=== PATIENT | female | born 1965 | race Caucasian/White ===

== ENCOUNTER 2019-11-30 18:45 | Inpatient (IN) ==
[2019-11-30 19:46] LABS: Basophils % 0.5 %; Eosinophils # 0.1 K/mcL (0.0-0.6); Hematocrit 41.1 % (35.3-44.9); Hemoglobin 13.9 g/dL (11.5-15.4); Immature Granulocytes % 0.3 % (0-4); Lymphocytes # 1.6 K/mcL (0.6-4.6); Mean Corpuscular HGB Conc 33.8 g/dL (31.6-35.5); Mean Corpuscular Volume 94.7 fL (83.0-100.0); Mean Platelet Volume 10.7 fL (9.4-12.4); Monocytes # 0.8 K/mcL (0.0-1.3); Monocytes % 11.6 %; Neutrophils # 3.9 K/mcL (1.6-8.9); Platelet Count 148 K/mcL (140-400); Red Blood Count 4.34 M/mcL (3.82-4.97); Red Cell Distribution Width 14.3 % (11.5-14.5); Segmented Neutrophils % 60.6 %; White Blood Count 6.5 K/mcL (4.3-11.1)
[2019-11-30 19:49] LABS: INR 1.1; Prothrombin Time 12.5 Seconds (9.4-12.1)
[2019-11-30 19:52] LABS: Activated Partial Thrombo Time 31.1 Seconds (26.0-36.0)
[2019-11-30 20:18] LABS: BUN/Creatinine Ratio 18 (6-26); Blood Urea Nitrogen 11 mg/dL (6-20); Calcium 9.6 mg/dL (8.6-10.3); Carbon Dioxide 28 mEq/L (23-29); Chloride 100 mEq/L (98-107); Creatine Kinase 142 Units/L (30-223); Glucose 104 mg/dL (70-105); Osmolality,Calculated 286 (280-300); Potassium 3.5 mEq/L (3.5-5.1); Sodium 138 mEq/L (136-145); Troponin I < 0.03 ng/mL (< 0.04); eGFR For African Americans > 60 (> 60); eGFR For Non-African Americans > 60 (> 60)
[2019-11-30] MEDS ORDERED: Morphine Sulfate 2 MG/ML SYRINGE IVP ONE (20:33)
[2019-11-30] MEDS ORDERED: Naloxone 0.4 MG/ML INJ IVP PRN (22:06)
[2019-11-30] MEDS ORDERED: Ondansetron 4 MG/2 ML VIAL IVP PRN (22:06)
[2019-11-30] MEDS ORDERED: 0.9 % Sodium Chloride 1,000 ML IVC SCH (22:15)
[2019-12-01] MEDS: *HR* Heparin 5,000 UNIT/ML VIAL SQ SCH ×2 (02:43→12:53)
[2019-12-01] MEDS ORDERED: *HR* Buprenorphine HCl 8 MG TAB.SUBL SL SCH (03:15)
[2019-12-01 05:36] LABS: Basophils % 0.5 %; Eosinophils # 0.3 K/mcL (0.0-0.6); Eosinophils % 4.6 %; Hematocrit 37.9 % (35.3-44.9); Hemoglobin 12.3 g/dL (11.5-15.4); Immature Granulocytes % 0.4 % (0-4); Immature Platelets 4.3 % (1.1-6.1); Lymphocytes # 1.6 K/mcL (0.6-4.6); Lymphocytes % 29.6 %; Mean Corpuscular HGB Conc 32.5 g/dL (31.6-35.5); Mean Corpuscular Hemoglobin 31.2 pg (28.0-33.3); Mean Corpuscular Volume 96.2 fL (83.0-100.0); Mean Platelet Volume 10.3 fL (9.4-12.4); Monocytes # 0.7 K/mcL (0.0-1.3); Monocytes % 12.6 %; Neutrophils # 2.9 K/mcL (1.6-8.9); Platelet Count 132 K/mcL (140-400); Red Blood Count 3.94 M/mcL (3.82-4.97); Red Cell Distribution Width 14.4 % (11.5-14.5); Segmented Neutrophils % 52.3 %; White Blood Count 5.5 K/mcL (4.3-11.1)
[2019-12-01 05:50] LABS: Alanine Aminotransferase 4 Units/L (7-52); Albumin 3.6 g/dL (3.5-5.7); Albumin/Globulin Ratio 1.2 (1.1-2.2); Alkaline Phosphatase 50 Units/L (34-104); Aspartate Amino Transferase 11 Units/L (13-39); BUN/Creatinine Ratio 25 (6-26); Bilirubin,Total 0.5 mg/dL (0.3-1.0); Blood Urea Nitrogen 13 mg/dL (6-20); Calcium 8.9 mg/dL (8.6-10.3); Carbon Dioxide 27 mEq/L (23-29); Chloride 106 mEq/L (98-107); Glucose 106 mg/dL (70-105); Osmolality,Calculated 287 (280-300); Potassium 3.8 mEq/L (3.5-5.1); Sodium 138 mEq/L (136-145); Total Protein 6.6 g/dL (6.4-8.9); eGFR For African Americans > 60 (> 60); eGFR For Non-African Americans > 60 (> 60)
[2019-12-01 08:08] LABS: Adenovirus Not Detected (Not Detect); Bordetella Pertussis Not Detected (Not Detect); Chlamydophila pneumoniae Not Detected (Not Detect); Coronavirus 229E Not Detected (Not Detect); Coronavirus HKU1 Not Detected (Not Detect); Coronavirus NL63 Not Detected (Not Detect); Coronavirus OC43 Not Detected (Not Detect); Human Metapneumovirus Not Detected (Not Detect); Human Rhinovirus/Enterovirus Not Detected (Not Detect); Influenza A Subtype 2009 H1 Not Detected (Not Detect); Influenza B Not Detected (Not Detect); Mycoplasma pneumoniae Not Detected (Not Detect); Parainfluenza Virus 1 Not Detected (Not Detect); Parainfluenza Virus 2 Not Detected (Not Detect); Parainfluenza Virus 3 Not Detected (Not Detect); Parainfluenza Virus 4 Not Detected (Not Detect); Respiratory Syncytial Virus Not Detected (Not Detect); SARS-CoV-2 Not Detected (Not Detect)
[2019-12-01] MEDS ORDERED: Ketorolac 15 MG/ML VIAL IVP PRN (08:35)
[2019-12-01] MEDS ORDERED: HYDROcodone BIT/Homatropine 5 MG TABLET PO PRN ×2 (08:36→12:56)
[2019-12-01] MEDS ORDERED: *HR* Propofol 200 MG/20 ML VIAL IVP ONE (09:08)
[2019-12-01] MEDS ORDERED: Ondansetron 4 MG/2 ML VIAL ONE (09:08)
[2019-12-01] MEDS ORDERED: Dexamethasone 4 MG/ML VIAL ONE (09:08)
[2019-12-01] MEDS ORDERED: Lidocaine -MPF 2% 2 ML VIAL ONE (09:08)
[2019-12-01] MEDS ORDERED: *HR* FentaNYL (PF) 100 MCG/2 ML VIAL ONE ×3 (09:08→10:30)
[2019-12-01] MEDS ORDERED: *HR* Midazolam HCl 2 MG/2 ML VIAL ONE ×2 (09:15→10:18)
[2019-12-01] MEDS ORDERED: Vancomycin 1,000 MG VIAL ONE (09:22)
[2019-12-01] MEDS ORDERED: Nicotine 21 MG PATCH.TD24 TD SCH (09:30)
[2019-12-01] MEDS ORDERED: Acetaminophen IV 1,000 MG/100 ML INFUS..BTL ONE (09:56)
[2019-12-01] MEDS ORDERED: Ketorolac 30 MG/ML VIAL ONE (10:39)
[2019-12-01] MEDS ORDERED: CeFAZolin Syr 2,000MG/20 ML 2,000 MG/20 ML SYRINGE IVPB ONE (10:41)
[2019-12-01] MEDS ORDERED: Famotidine 20 MG/2 ML VIAL IVP ONE (11:16)
[2019-12-01] MEDS ORDERED: Pregabalin 75 MG CAPSULE PO ONE (11:16)
[2019-12-01] MEDS ORDERED: *HR* Labetalol 20 MG/4 ML SYRINGE IVP PRN (11:16)
[2019-12-01] MEDS ORDERED: *HR* OxyCODONE Immed Rel 5 MG TABLET PO PRN ×2 (11:16→16:46)
[2019-12-01] MEDS ORDERED: *HR* Promethazine 25 MG/ML VIAL IVP PRN (11:16)
[2019-12-01] MEDS ORDERED: *HR* HYDROmorphone 2 MG TABLET PO PRN (11:16)
[2019-12-01] MEDS: *HR* HYDROmorphone (PF) 1 MG/ML SYRINGE IVP PRN ×3 (11:25→11:56)
[2019-12-01 11:49] LABS: Hematocrit 41.3 % (35.3-44.9); Hemoglobin 13.1 g/dL (11.5-15.4)
[2019-12-01] MEDS ORDERED: Ondansetron 4 MG/2 ML VIAL IVP PRN (12:56)
[2019-12-01] MEDS ORDERED: Naloxone 0.4 MG/ML INJ IVP PRN (12:56)
[2019-12-01] MEDS ORDERED: Sennosides 8.6 MG TABLET PO PRN (12:56)
[2019-12-01] MEDS: Ipratropium/Albuterol Neb 3 ML IH SCH ×3 (14:07→22:40)
[2019-12-01] MEDS ORDERED: Ringers Solution, Lactated 1,000 ML IVC SCH (14:30)
[2019-12-01] MEDS: CeFAZolin 2 GM/120 ML BAG IVPB SCH (15:14)
[2019-12-01] MEDS ORDERED: Ketorolac 30 MG/ML VIAL IVP ONE (23:26)
[2019-12-02] MEDS: CeFAZolin 2 GM/120 ML BAG IVPB SCH (00:47)
[2019-12-02] MEDS: Ipratropium/Albuterol Neb 3 ML IH SCH ×4 (03:27→21:42)
[2019-12-02] MEDS ORDERED: Ketorolac 30 MG/ML VIAL IVP ONE (04:00)
[2019-12-02 06:19] LABS: Basophils % 0.1 %; Mean Corpuscular Volume 97.3 fL (83.0-100.0); Mean Platelet Volume 10.9 fL (9.4-12.4)
[2019-12-02 06:21] LABS: Eosinophils % 0.1 %; Hematocrit 32.8 % (35.3-44.9); Hemoglobin 10.7 g/dL (11.5-15.4); Immature Granulocytes % 0.3 % (0-4); Immature Platelets 4.4 % (1.1-6.1); Lymphocytes % 13.7 %; Mean Corpuscular HGB Conc 32.6 g/dL (31.6-35.5); Mean Corpuscular Hemoglobin 31.8 pg (28.0-33.3); Monocytes # 0.7 K/mcL (0.0-1.3); Neutrophils # 5.5 K/mcL (1.6-8.9); Platelet Count 113 K/mcL (140-400); Red Blood Count 3.37 M/mcL (3.82-4.97); Red Cell Distribution Width 14.3 % (11.5-14.5); Segmented Neutrophils % 75.8 %; White Blood Count 7.2 K/mcL (4.3-11.1)
[2019-12-02 06:36] LABS: BUN/Creatinine Ratio 25 (6-26); Blood Urea Nitrogen 16 mg/dL (6-20); Carbon Dioxide 26 mEq/L (23-29); Chloride 105 mEq/L (98-107); Glucose 126 mg/dL (70-105); Osmolality,Calculated 289 (280-300); Potassium 4.2 mEq/L (3.5-5.1); Sodium 138 mEq/L (136-145); eGFR For African Americans > 60 (> 60); eGFR For Non-African Americans > 60 (> 60)
[2019-12-02] MEDS ORDERED: *HR* Buprenorphine HCl 8 MG TAB.SUBL SL SCH (09:00)
[2019-12-02] MEDS: Nicotine 21 MG PATCH.TD24 TD SCH (10:26)
[2019-12-02] MEDS: Cholecalciferol (D-3) 1,000 UNIT (25MCG) TABLET PO SCH (10:26)
[2019-12-02] MEDS: *HR* Buprenorphine HCl 8 MG TAB.SUBL SL SCH (10:26)
[2019-12-02] MEDS: Aspirin Enteric Coated 81 MG Tablet PO SCH (10:26)
[2019-12-02] MEDS: *HR* Buprenorphine HCl 2 MG SUBLINGUAL TABLET SL SCH (16:53)
[2019-12-02] MEDS ORDERED: Ibuprofen 800 MG TABLET PO ONE (21:34)
[2019-12-03] MEDS: Ipratropium/Albuterol Neb 3 ML IH SCH ×4 (03:42→22:02)
[2019-12-03 05:57] LABS: Hematocrit 28.8 % (35.3-44.9); Hemoglobin 9.5 g/dL (11.5-15.4)
[2019-12-03] MEDS: *HR* Buprenorphine HCl 8 MG TAB.SUBL SL SCH (07:46)
[2019-12-03] MEDS: Cholecalciferol (D-3) 1,000 UNIT (25MCG) TABLET PO SCH (08:56)
[2019-12-03] MEDS: Nicotine 21 MG PATCH.TD24 TD SCH (08:56)
[2019-12-03] MEDS: Aspirin Enteric Coated 81 MG Tablet PO SCH (08:56)
[2019-12-03] MEDS ORDERED: *HR* Buprenorphine HCl 8 MG TAB.SUBL SL SCH (09:00)
[2019-12-03] MEDS: Acetaminophen 325 MG TABLET PO PRN ×2 (14:42→21:15)
[2019-12-03] MEDS: *HR* Buprenorphine HCl 2 MG SUBLINGUAL TABLET SL SCH (16:26)
[2019-12-04] MEDS: Ipratropium/Albuterol Neb 3 ML IH SCH ×4 (03:41→21:29)
[2019-12-04] MEDS: *HR* Buprenorphine HCl 8 MG TAB.SUBL SL SCH (09:09)
[2019-12-04] MEDS: Cholecalciferol (D-3) 1,000 UNIT (25MCG) TABLET PO SCH (09:09)
[2019-12-04] MEDS: Nicotine 21 MG PATCH.TD24 TD SCH (09:09)
[2019-12-04] MEDS: Acetaminophen 325 MG TABLET PO PRN ×2 (09:09→15:52)
[2019-12-04] MEDS: Aspirin Enteric Coated 81 MG Tablet PO SCH (09:09)
[2019-12-04 10:49] LABS: Hematocrit 30.1 % (35.3-44.9); Hemoglobin 9.8 g/dL (11.5-15.4)
[2019-12-04] MEDS: *HR* Buprenorphine HCl 2 MG SUBLINGUAL TABLET SL SCH (15:52)
[2019-12-05] MEDS: Acetaminophen 325 MG TABLET PO PRN ×2 (01:07→11:55)
[2019-12-05] MEDS: Ipratropium/Albuterol Neb 3 ML IH SCH ×4 (03:31→21:39)
[2019-12-05] MEDS: Cholecalciferol (D-3) 1,000 UNIT (25MCG) TABLET PO SCH (08:54)
[2019-12-05] MEDS: Aspirin Enteric Coated 81 MG Tablet PO SCH (08:54)
[2019-12-05] MEDS: *HR* Buprenorphine HCl 8 MG TAB.SUBL SL SCH (08:55)
[2019-12-05] MEDS: Nicotine 21 MG PATCH.TD24 TD SCH (08:55)
[2019-12-05] MEDS: *HR* Buprenorphine HCl 2 MG SUBLINGUAL TABLET SL SCH (17:01)
[2019-12-06] MEDS: Acetaminophen 325 MG TABLET PO PRN (02:31)
[2019-12-06 02:43] LABS: Hematocrit 35.6 % (35.3-44.9)
[2019-12-06 02:45] LABS: Hemoglobin 11.6 g/dL (11.5-15.4)
[2019-12-06] MEDS: Ipratropium/Albuterol Neb 3 ML IH SCH ×2 (03:57→10:01)
[2019-12-06 07:08] VITALS: BP 122/70
[2019-12-06] MEDS: Aspirin Enteric Coated 81 MG Tablet PO SCH (08:40)
[2019-12-06] MEDS: Cholecalciferol (D-3) 1,000 UNIT (25MCG) TABLET PO SCH (08:41)
[2019-12-06] MEDS: *HR* Buprenorphine HCl 8 MG TAB.SUBL SL SCH (08:41)
[2019-12-06] MEDS: Nicotine 21 MG PATCH.TD24 TD SCH (08:44)
[2019-12-06] MEDS ORDERED: FLU Vac QV 20-21 (6Month+)/PF 0.5 ML SYRINGE IM ONE (08:52)
== END 2019-12-06 11:25 | disposition home health service (06) | DRG 308 ==
LOC: EMEROOARM 18:45 → 3NENU 18:45 → SUATTDRO 21:25 → 3NENU 22:31
PROVIDERS: ADMIT Internal Medicine; ATTEND Family Medicine